=== PATIENT | female | born 1985 | race Caucasian/White ===

== ENCOUNTER 2017-08-25 01:10 | Emergency (ER) | payer SELFPAY ==
[~2017-08-25] VITALS: Ht 157.5 cm; Wt 98.4 kg
[2017-08-25 01:15] VITALS: BP 142/85
[2017-08-25] MEDS ORDERED: KETOROLAC 60MG/2ML VIAL IM ONE (03:30)
[2017-08-25 04:37] LABS: CLARITY URINE CLOUDY (CLEAR); COLOR URINE YELLOW (YELLOW); GLUCOSE URINE NEGATIVE (NEGATIVE); KETONES URINE NEGATIVE (NEGATIVE); LEUKOCYTE ESTERASE URINE 2+ (NEGATIVE); NITRITE URINE NEGATIVE (NEGATIVE); OCCULT BLOOD URINE NEGATIVE (NEGATIVE); PH URINE 6.5 (4.5-8.0); PROTEIN URINE NEGATIVE (NEGATIVE); SPECIFIC GRAVITY URINE 1.013 (1.005-1.030); UROBILINOGEN URINE 0.2 E.U./dL (0.2-1.0)
== END 2017-08-25 06:03 | disposition home or self-care (01) ==
LOC: ER 01:36
DX: M54.5 Low back pain (principal); N39.0 Urinary tract infection, site not specified
CPT/HCPCS: 81001; 81025; 96372; 99283; J1885